=== PATIENT | male | born 1935 | race Caucasian/White ===

== ENCOUNTER 2018-03-18 15:37 | Inpatient (IN) | payer OTHER ==
[~2018-03-18] VITALS: Ht 175.3 cm; Wt 69.9 kg
[~2018-03-18 15:37] MED LIST: ACETAMINOPHEN-1 EAC1 PO; ACIDOPHILUS1 EAC4 PO; ACYCLOVIR 800800 MG PO; ALBUTEROL SULFAT2 MG PO; ALBUTEROL2.5 MG/0.5 INH; ARIXTRA SQ; ASPIR 8181 M1 PO; ASPIR 8181 MG PO; ASPIRIN325 PO; ATIVAN0.5 MG PO; ATIVAN1 MG PO; ATORVASTATIN CA20 MG PO; ATORVASTATIN CA40 MG PO; BACTRIM DS TAB1 EACH PO; CEFTIN 250 MG250 MG PO; CELEBREX 200 M200 M1 PO; CIPRO250 M1 PO; CIPRO500 MG PO; CLOPIDOGREL75 MG PO; COLACE100 MG PO; CORTEF 20 MG TA20 M1 PO; CORTEF 20 MG TA20 MG PO; CORTEF5 MG PO; DELSYM30 MG/5 M1 PO; DITROPAN XL5 M1 PO; DOXYCYCLINE 10100 MG PO; DULERA 100 MCG/13 GM; DULERA 200 MCG/13 GM INH; DUONEB 2.5-0.5 M3 ML INH; EFFEXOR XR PO; EFFEXOR XR150 MG PO; EFFEXOR XR75 MG PO; FISH OIL 1,001000 M2 PO; FLOMAX PO; FLORINEF ACETA0.1 MG PO; FOLIC ACID1 MG PO; HYDROCODONE-AP1 EAC6 PO; HYDROXYCHLOROQ200 M1 PO; IRON325 PO; LEVAQUIN 250 M250 MG PO; LEVAQUIN 500 M500 M2 PO; LEVAQUIN 750 M750 MG PO; LEVOTHYROXINE 0.1 MG; LEVOXYL75 MCG PO; LEVSIN-SL0.125 MG SL; LEVSIN0.125 MG SUBLING; LIPITOR10 MG PO; LISINOPRIL10 MG; LOPRESSOR 50 MG50 M1 PO; LOPRESSOR PO; LOPRESSOR25 PO; LOPRESSOR50 PO; LOVASTAT20; LOVASTATIN 20 M20 MG PO; MELATONIN3 MG PO; METAMUCIL0.52 GM PO; METAMUCIL197.2 GM PO; METHOTREXATE 22.5 MG PO; MIDODRINE HCL 55 M1 PO; MIRALAX17 GM PO; MIRALAX255 GM PO; MOBIC7.5 MG PO; MOM PO; MUCINEX COLD &177 ML PO; MUCINEX TA600 MG/TA2 PO; NEXIUM40 MG PO; NITROGLYCERIN0.4 MG; NITROGLYCERIN0.4 MG SUBLING; NORCO 7.5-3251 EACH; NORVASC2.5 MG PO; OXYGEN NASAL; PAXIL10 MG PO; PHENAZOPYRIDIN200 M2 PO; PLAVIX 75 MG TA75 M1 PO; PREDNISONE 1 MG1 M1; PREDNISONE 10 M10 M1 PO; PREDNISONE 10 M10 MG PO; PREDNISONE 5 MG5 M1 PO; PROBIOTIC1 EAC1 PO; PROTONIX40 M1 PO; ROBITUSSIN100 MG/53 PO; SIMVASTATIN40 MG PO; SINGULAIR 10 MG10 M1 PO; STOOL SOFTENER1 EAC2 PO; SULFASALAZINE500 M5 PO; TAMSULOSIN HCL0.4 MG PO; TRAMADOL 50 MG50 MG PO; TYLENOL EXTRA500 MG PO; UNICOMPLEX M TA1 TA1 PO; VANCOMYCIN1.25 GM/15 IV; VENTOLIN HFA 1818 GM INH; VERAMYST10 GM SPRAY; VITAMIN D1000 UNI1 PO; VITAMIN D2000 UNIT; WELLBUTRIN XL150 MG PO; ZOCOR40 MG PO
[2018-03-18 15:45] VITALS: BP 153/87
[2018-03-18] MEDS ORDERED: PLAVIX 75 MG TA75 M1 PO (15:59)
[2018-03-18] MEDS ORDERED: KENALOG CREAM TOP (16:10)
[2018-03-18 16:12] LABS: URINE BILIRUBIN NEGATIVE (Negative); URINE BLOOD 3+ (Negative); URINE CLARITY CLOUDY; URINE COLOR YELLOW; URINE GLUCOSE-RANDOM NEGATIVE (Negative); URINE KETONES NEGATIVE (Negative); URINE LEUKOCYTES-REFLEX 1+ (Negative); URINE NITRITE-REFLEX NEGATIVE (Negative); URINE PROTEIN 1+ (Negative); URINE SPECIFIC GRAVITY >= 1.030 (1.005-1.030); URINE UROBILINOGEN 0.2 E.U./dl (0.2-1.0)
[2018-03-18 16:23] LABS: CASTS None Seen /LPF (None Seen); CRYSTALS None Seen /LPF (None Seen); SQUAMOUS NONE SEEN /LPF (0-3)
[2018-03-18 16:24] LABS: BACTERIA-REFLEX >30 Many /HPF (None Seen)
[2018-03-18 16:27] LABS: ABSOLUTE BASOPHILS 0.1 thou/uL (0.0-0.2); ABSOLUTE EOSINOPHILS 0.5 thou/uL (0.0-0.7); ABSOLUTE LYMPHOCYTES 0.8 thou/uL (0.8-5.3); ABSOLUTE MONOCYTES 0.4 thou/uL (0.0-1.2); ABSOLUTE NEUTROPHILS 5.4 thou/uL (1.6-8.1); BASOPHILS 0.8 %; EOSINOPHILS 6.8 %; HEMATOCRIT 27.4 % (42.0-52.0); HEMOGLOBIN 8.6 gm/dL (14.0-18.0); LYMPHOCYTES 11.4 %; MCH 21.5 pg (26.0-34.0); MCHC 31.4 g/dL (28.0-37.0); MCV 68.5 fL (80.0-100.0); MONOCYTES 5.6 %; MPV 8.2 fl. (7.2-11.1); NUCLEATED RBCS 0 /100WBC; PLATELET COUNT* 278 thou/uL (150-400); POLYS 75.4 %; RDW-CV 20.9 % (10.5-14.5); WBC 7.1 thou/uL (4.0-11.0)
[2018-03-18 16:42] LABS: CALCIUM 8.3 mg/dL (8.5-10.1)
[2018-03-18 16:47] LABS: ANISOCYTOSIS 2+; HYPOCHROMASIA 2+; PLATELET ESTIMATE ADEQUATE
[2018-03-18 16:48] LABS: OVALOCYTES Occasional
[2018-03-18 16:49] LABS: MICROCYTES 3+
[2018-03-18 16:53] LABS: ALBUMIN 2.1 g/dL (3.4-5.0); TOTAL BILIRUBIN 0.5 mg/dL (<0.1-1.0); TOTAL PROTEIN 7.4 g/dL (6.4-8.2); TROPONIN-I LEVEL 0.09 ng/mL (<0.06)
[2018-03-18 17:09] LABS: BE -0.5 mmol/L (-2 to +3); PCO2 32.3 mmHg (35.0-45.0); PO2 100.1 mmHg (75.0-100.0)
[2018-03-18 18:15] VITALS: BP 160/92
[2018-03-18 19:03] VITALS: BP 156/91
[2018-03-18 23:59] VITALS: BP 166/100
[2018-03-19 04:00] VITALS: BP 128/80
[2018-03-19 05:10] LABS: HEMATOCRIT 27.1 % (42.0-52.0); HEMOGLOBIN 8.6 gm/dL (14.0-18.0); MCH 21.8 pg (26.0-34.0); MCHC 31.8 g/dL (28.0-37.0); MCV 68.8 fL (80.0-100.0); RBC 3.94 mil/uL (4.50-6.00); RDW-CV 21.1 % (10.5-14.5); WBC 4.3 thou/uL (4.0-11.0)
[2018-03-19 05:30] LABS: CALCIUM 8.2 mg/dL (8.5-10.1); CREATININE 1.2 mg/dL (0.6-1.3); MAGNESIUM 1.8 mg/dL (1.8-2.4)
[2018-03-19 05:31] LABS: POTASSIUM 4.3 mmol/L (3.5-5.1)
[2018-03-19 08:00] VITALS: BP 129/71
--- NOTE | 2018-03-19 11:43 | EKG ---
[place] [address] ELECTROCARDIOGRAM REPORT Name: GRAZYNA MOREL Room: [address] IN .R.#: [id number] Admission: 03/18/18 Attend Phys: José Manuel Ashraf MD Discharge: Date of : 37 Report #: [id number] THIS REPORT FOR: //name// [facility] ED Test Date: 2018-03-18 Test Time: 15:49:12 Pat Name: GRAZYNA MOREL Department: Room: Gender: M Terrazzo Polisher: Robinson CARL : 1935 Requested By: Nirmal Deleon Order Number: [id number] MD: Rafiq Field Measurements Intervals [place] Rate: 82 P: 89 AK: 234 QRS: -13 QRSD: 116 T: 142 QT: 419 QTc: 490 Interpretive Statements Sinus rhythm Prolonged AK interval Nonspecific intraventricular conduction delay Repol abnrm suggests ischemia, lateral leads Compared to ECG 09/08/2017 11:20:30 pvc no longer seen Electronically Signed On 03-19-2018 11:43:35 CDT by Rafiq Field [email or web address] <ELECTRONICALLY SIGNED> By: Rafiq Field MD, [facility] 03/19/18 1143 [id number] [id number] Rafiq Field MD, [facility] /EPI
[2018-03-19 12:14] VITALS: BP 145/89
[2018-03-19 13:50] LABS: APTT 30.5 Seconds (25.0-31.3); INR 1.2; PROTIME 11.7 Seconds (9.20-11.50)
[2018-03-19 15:53] LABS: BF RBC 2155 /mm3; TOTAL CELL COUNT 539 /mm3
[2018-03-19 16:13] LABS: SOURCE THORACENTESIS
[2018-03-19 16:15] LABS: BF OTHER CYTO TO FOLLOW; CLARITY HAZY; COLOR AMBER; TOTAL VOLUME 1060 ml
[2018-03-19 16:16] LABS: BF LYMPHOCYTES 73 %; BF POLYS 27 %; SOURCE THORACENTESIS
[2018-03-19 19:45] VITALS: BP 156/107
[2018-03-20] VITALS (7 sets, daily range): BP systolic 137–156; BP diastolic 81–103
[2018-03-20 09:12] LABS: BODY FLUID AMYLASE 11 U/L (()); BODY FLUID LDH 70 IU/L (()); BODY FLUID PROTEIN 1.2 g/dL (())
[2018-03-20 11:14] LABS: BODY FLUID PH 7.7 (Not Estab.)
[2018-03-21 04:00] VITALS: BP 134/84
[2018-03-21 04:55] LABS: HEMATOCRIT 26.7 % (42.0-52.0); HEMOGLOBIN 8.4 gm/dL (14.0-18.0); MCH 21.7 pg (26.0-34.0); MCHC 31.5 g/dL (28.0-37.0); MCV 68.9 fL (80.0-100.0); MPV 9.5 fl. (7.2-11.1); RBC 3.88 mil/uL (4.50-6.00); WBC 10.2 thou/uL (4.0-11.0)
[2018-03-21 05:06] LABS: CALCIUM 8.1 mg/dL (8.5-10.1); CREATININE 1.2 mg/dL (0.6-1.3); MAGNESIUM 2.1 mg/dL (1.8-2.4); POTASSIUM 4.8 mmol/L (3.5-5.1)
[2018-03-21 08:00] VITALS: BP 146/91
[2018-03-21 12:25] VITALS: BP 164/108
[2018-03-21 16:21] VITALS: BP 129/80
[2018-03-21 20:00] VITALS: BP 158/106
[2018-03-22] VITALS: BP 142/84
[2018-03-22 03:59] VITALS: BP 138/90
[2018-03-22 05:10] LABS: CALCIUM 8.2 mg/dL (8.5-10.1); CREATININE 1.2 mg/dL (0.6-1.3); MAGNESIUM 2.1 mg/dL (1.8-2.4); POTASSIUM 4.4 mmol/L (3.5-5.1)
[2018-03-22 08:00] VITALS: BP 146/98
[2018-03-22 11:53] VITALS: BP 152/102
[2018-03-22 16:03] VITALS: BP 165/104
[2018-03-23 00:46] VITALS: BP 138/75
[2018-03-23 03:44] VITALS: BP 133/82
[2018-03-23 08:00] VITALS: BP 144/92
[2018-03-23] MEDS ORDERED: BACTRIM DS TAB1 EACH PO (11:08)
[2018-03-23] MEDS ORDERED: PREDNISONE 10 M10 MG PO (11:08)
[2018-03-23] MEDS ORDERED: MUCINEX600 MG PO (11:08)
[2018-03-23] MEDS ORDERED: ZYVOX600 MG PO (11:08)
[2018-03-23 12:21] VITALS: BP 144/92
--- NOTE | 2018-03-26 08:22 | CON ---
[address] [address] CONSULTATION Name: GRAZYNA MOREL Room: [address] IN M.R.#: [id number] Admission: 03/18/18 Attend Phys: José Manuel Ashraf MD Discharge: 03/23/18 Date of : 37 Report #: [id number] THIS REPORT FOR: //name// CC: José Manuel Nugent DO DICTATED BY: Stephanie Garcia [facility] DATE OF SERVICE: 03/19/2018 Please note at the time of this dictation, the patient was seen and physically examined by myself. REASON FOR CONSULTATION: Abnormality on his CT scan of his esophagus. HISTORY OF PRESENT ILLNESS: This is an 82-year-old male presented to the Emergency Room with increasing worsening of his shortness of breath over the last 1-2 weeks. He does have a standing history of COPD and he was having a productive cough. He usually uses O2 3 liters at night, but has also been using it during the day as well his nebulizer treatments have not been effective in helping with his shortness of air. The patient states his last EGD was back several years ago. It was noted that he had Botox at the LES and he was dilated with a 60-[place] at that time with no changes and had a small hiatal hernia. It was repeat EGD in December that just showed a nonbleeding erosion, otherwise essentially negative. The patient also had a colonoscopy back in 2007 that just showed some sigmoid diverticular disease and internal hemorrhoids. The patient at the time of this dictation does not describe having any difficulty with swallowing with liquids or solids except hot coffee. He will have some difficulty in swallowing with that only. He denies any nausea, vomiting, abdominal pain at the present time. He states that his bowels move daily, soft and formed with the help of some MiraLax. ALLERGIES: CODEINE, AMOXICILLIN. MEDICATIONS FROM HOME: Include Plavix, aspirin, Lipitor, fish oil, Ditropan, Lopressor, Plaquenil, Synthroid, Effexor, oxygen, multivitamin, Colace, Singulair, Tylenol, Ventolin, Cortef, tamsulosin. PAST MEDICAL HISTORY: Significant for hypertension, high cholesterol, CVA, prostate cancer. He has had an SD, rheumatoid arthritis, COPD, erectile dysfunction, coronary artery disease. PAST SURGICAL HISTORY: He has had stenting done, a stent in his groin as well. Bilateral knee replacements, [place] [address] CONSULTATION Name: GRAZYNA MOREL Room: [address]#: [id number] Admission: 03/18/18 Attend Phys: José Manuel Ashraf MD Discharge: 03/23/18 Date of : 37 Report #: [id number] FAMILY HISTORY: Negative for any GI or female cancers. SOCIAL HISTORY: Denies any alcohol, tobacco or illegal drug use. REVIEW OF SYSTEMS: Twelve-point review of systems is essentially negative except what is mentioned in the HPI. PHYSICAL EXAMINATION: VITAL SIGNS: Temperature 36.6, pulse 87, respirations 22, blood pressure 129/71. HEART: Regular rate and rhythm. LUNGS: Diminished, particularly on the right. ABDOMEN: Soft, positive bowel sounds in all 4 quadrants with no masses or tenderness noted. LABORATORY DATA: Hemoglobin 8.6, hematocrit 27.1, white count is 4.3, platelets 254, MCV is 68.8. Sodium 139, potassium 4.3, chloride 107, CO2 24, BUN is 24, creatinine 1.2, GFR is 58, glucose is 140. BNP was 11,636. He had elevated troponin at that time. CTA showed bleeding in the esophagus and it seemed somewhat distended. IMPRESSION: 1. CT of the abdomen abnormality in the esophagus. 2. History of achalasia. 3. Pneumonia with exacerbation of his chronic obstructive pulmonary disease. 4. Anticoagulant therapy, Plavix. 5. Anemic and low MCV. He does not take an iron supplement. PLAN: 1. Barium swallow. 2. Await results of thoracentesis and we will make further recommendations once the above have been performed. Thank you for allowing us to participate in this patient's care. Please do not hesitate to call with any questions in regard to this consult. <ELECTRONICALLY SIGNED> By: Kevin Harris MD 03/26/18 0822 1134 [id number] Harris MD /nt
--- NOTE | 2018-03-26 20:24 | EEG ---
[address] [address] EEG STUDY REPORT Name: GRAZYNA MOREL Room: [address] IN M.R.#: [id number] Admission: 03/18/18 Attend Phys: José Manuel Ashraf MD Discharge: 03/23/18 Date of : 37 Report #: [id number] THIS REPORT FOR: //name// CC: José Manuel Nugent DATE OF SERVICE: 03/20/2018 This patient is being evaluated for seizure. EEG was done by placing the electrodes by standard 10-20 system of electrode placement. Both referential and sequential montages were used for recording. Background activity in this patient's EEG goes about 8 Hz and 30 microvolt. It is a symmetrical activity. Photic stimulation was unremarkable. The patient goes to sleep that is associated with bilateral slowing and vertex sharp waves. Throughout the record, no active epileptiform activity was noticed. IMPRESSION: This patient's EEG is still intermixed with some theta range slowing on both sides. However, no active epileptiform activity appeared to be present. Thank you very much for this referral. <ELECTRONICALLY SIGNED> By: Daniel Black MD 03/26/182023 29 38Daniel Black MD /nt
[2018-04-07] MEDS ORDERED: MIDODRINE HCL 55 M1 PO (13:45)
[2018-04-10] MEDS ORDERED: CEFUROXIME500 MG PO (12:27)
[2018-04-10] MEDS ORDERED: NYAMYC15 GM TOP (12:28)
[2018-04-10] MEDS ORDERED: MELATONIN5 M1 PO (12:28)
== END 2018-03-23 13:25 | disposition home or self-care (01) | DRG 178 ==
LOC: M.ERS 15:37 → M.TBA-ER 17:33 → M.2W 17:33 → M.3W 03-22 15:12
PROVIDERS: Emergency Medicine Emergency Medical Services; ADMIT Internal Medicine
PROC: 0W993ZZ Drainage of Right Pleural Cavity, Percutaneous Approach (ICD-10-PCS; principal; 2018-03-19)
DX: J69.0 Pneumonitis due to inhalation of food and vomit (principal); J44.1 Chronic obstructive pulmonary disease with (acute) exacerbation; E44.0 Moderate protein-calorie malnutrition; E27.40 Unspecified adrenocortical insufficiency; N39.0 Urinary tract infection, site not specified; J44.0 Chronic obstructive pulmonary disease with (acute) lower respiratory infection; J90 Pleural effusion, not elsewhere classified; I25.10 Atherosclerotic heart disease of native coronary artery without angina pectoris; H91.90 Unspecified hearing loss, unspecified ear; I10 Essential (primary) hypertension; E78.00 Pure hypercholesterolemia, unspecified; Z96.653 Presence of artificial knee joint, bilateral; D64.9 Anemia, unspecified; H54.40 Blindness, one eye, unspecified eye; M06.9 Rheumatoid arthritis, unspecified; E87.6 Hypokalemia; B96.20 Unspecified Escherichia coli [E. coli] as the cause of diseases classified elsewhere; Z86.14 Personal history of Methicillin resistant Staphylococcus aureus infection; I25.2 Old myocardial infarction; Z95.5 Presence of coronary angioplasty implant and graft; Z86.73 Personal history of transient ischemic attack (TIA), and cerebral infarction without residual deficits; Z85.46 Personal history of malignant neoplasm of prostate; Z79.02 Long term (current) use of antithrombotics/antiplatelets; Z79.82 Long term (current) use of aspirin; Z68.22 Body mass index [BMI] 22.0-22.9, adult; Z79.899 Other long term (current) drug therapy; Z88.1 Allergy status to other antibiotic agents; Z88.5 Allergy status to narcotic agent